=== PATIENT | female | born 1965 | race Caucasian/White ===

== ENCOUNTER 2016-09-02 08:40 | Day surgery (SDC) | payer OTHER ==
[~2016-09-02] VITALS: Ht 154.9 cm; Wt 72.6 kg
[~2016-09-02 08:40] MED LIST: ADULT LOW DOSE81 M1 PO; Atarax,Vistaril PO; CELEXA10 MG PO; CLINDAMYCIN HC150 MG PO; CLONAZEPAM1 M1 PO; CLONAZEPAM1 MG PO; CYMBALTA60 MG PO; DESYREL 150 MG150 MG PO; DESYREL300 MG PO; ELAVIL25 MG PO; FLEXERIL10 MG PO; GABAPENTIN100 MG PO; GABAPENTIN300 MG PO; IMITREX100 MG PO; IMITREX6 MG/0.51 SC; KETOROLAC TROMET5 ML BOTH EYES; LANTUS (UNITS)1 UNIT SC; MIRALAX255 GM PO; MS CONTIN,ORAMO15 M1 PO; NOVOLOG100 UNIT/3 SQ; OXYCODONE HCL10 MG PO; PERCOCET 5/31 TABLET PO; PREDNISOLONE SOD5 ML BOTH EYES; REQUIP1 MG PO; RESTORIL30 MG PO; SEROPHENE50 MG PO; SEROQUEL200 MG PO; SEROQUEL300 MG PO; SEROQUEL400 MG PO; SEROQUEL50 MG PO; TRAZODONE HCL150 MG PO; ULTRAM50 MG PO; ZANTAC150 M1 PO; ZITHROMAX250 MG PO; ZOCOR20 MG PO
== END 2016-09-02 10:32 | disposition home or self-care (01) ==
LOC: PAIN 08:40 → SDC 09:30 → PAIN 09:30
PROC: 015B3ZZ Destruction of Lumbar Nerve, Percutaneous Approach (ICD-10-PCS; principal; 2016-09-02)
DX: M47.816 Spondylosis without myelopathy or radiculopathy, lumbar region (principal); F41.9 Anxiety disorder, unspecified; F17.200 Nicotine dependence, unspecified, uncomplicated; E11.9 Type 2 diabetes mellitus without complications; M19.90 Unspecified osteoarthritis, unspecified site; E78.5 Hyperlipidemia, unspecified; G47.00 Insomnia, unspecified; D64.9 Anemia, unspecified; J45.909 Unspecified asthma, uncomplicated; F31.10 Bipolar disorder, current episode manic without psychotic features, unspecified; M79.1 Myalgia; G89.29 Other chronic pain; E66.9 Obesity, unspecified; Z68.41 Body mass index [BMI] 40.0-44.9, adult; Z88.1 Allergy status to other antibiotic agents; Z88.6 Allergy status to analgesic agent; Z88.8 Allergy status to other drugs, medicaments and biological substances
CPT/HCPCS: J1030; J2250; J3010; S0020

== ENCOUNTER 2016-09-09 06:52 | Day surgery (SDC) | payer OTHER ==
[~2016-09-09] VITALS: Ht 154.9 cm; Wt 72.6 kg
== END 2016-09-09 08:59 | disposition home or self-care (01) ==
LOC: PAIN 06:52 → SDC 07:30 → PAIN 07:30
DX: M47.816 Spondylosis without myelopathy or radiculopathy, lumbar region (principal); G89.29 Other chronic pain; M54.5 Low back pain; M51.36 Other intervertebral disc degeneration, lumbar region; K21.9 Gastro-esophageal reflux disease without esophagitis; Z86.73 Personal history of transient ischemic attack (TIA), and cerebral infarction without residual deficits; F17.210 Nicotine dependence, cigarettes, uncomplicated; Z88.2 Allergy status to sulfonamides; M79.7 Fibromyalgia; D64.9 Anemia, unspecified; F41.8 Other specified anxiety disorders; E11.9 Type 2 diabetes mellitus without complications; J45.909 Unspecified asthma, uncomplicated; E66.9 Obesity, unspecified; Z68.41 Body mass index [BMI] 40.0-44.9, adult; Z79.891 Long term (current) use of opiate analgesic
CPT/HCPCS: J1030; J2250; J3010; S0020

== ENCOUNTER 2016-10-11 17:51 | Observation (INO) | payer OTHER ==
[~2016-10-11] VITALS: Ht 152.4 cm; Wt 98.5 kg
[2016-10-11 18:33] LABS: EOSINOPHIL (%) 1.1 % (0-5); EOSINOPHIL COUNT 0.1 K/uL (0-0.3); HEMATOCRIT 41.1 % (36.0-46.0); IMMATURE GRANULOCYTE (%) 0.3 % (0.0-0.7); INSTRUMENT ABS NEUTROPHIL CT 3.5 K/uL; LYMPHOCYTE COUNT 3.2 K/uL (1.0-2.8); MCH 33.7 PG (29.0-34.0); MCHC 33.6 G/DL (30.0-36.0); MCV 100.5 FL (83-99); MONOCYTE COUNT 0.4 K/uL (0-0.8); NEUTROPHIL COUNT 3.5 K/uL (1.8-6.4); RBC DIS.WIDTH-CV 12.5 % (11.8-14.6); RBC DIS.WIDTH-SD 46.5 % (39-53); RED BLOOD COUNT 4.09 M/uL (3.80-5.20); WHITE BLOOD COUNT 7.3 K/uL (4.1-10.2)
[2016-10-11 18:41] LABS: PROTHROMBIN TIME 10.4 SEC (10.2-12.9)
[2016-10-11 18:47] LABS: AMYLASE 97 IU/L (1-118); CHLORIDE 111 mEq/L (99-109); POTASSIUM 4.5 mEq/L (3.7-5.4); SODIUM 144 mEq/L (136-147)
[2016-10-11 18:49] LABS: GLUCOSE 98 mg/dL (70-99)
[2016-10-11 18:51] LABS: ANION GAP 7 MEQ/L (2-14)
[2016-10-11 18:52] LABS: SERUM ETHYL ALCOHOL < 10 mg/dL
[2016-10-11 18:53] LABS: GFR ESTIMATE (CALCULATED) > 59 mL/min/
[2016-10-11 18:54] LABS: TROP-I INTERPRETATION NEGATIVE; TROPONIN-I < 0.01 ng/mL (0.0-0.30); UREA NITROGEN (BUN) 18 mg/dL (9-23)
[2016-10-11 18:56] LABS: LIPASE 85 U/L (1.0-51.0); QUANTITATIVE HCG < 4.0 MIU/ML
[2016-10-11 19:11] LABS: MEAN PLAT.VOLUME 11.4 uM^3 (9.5-12.4); PLAT.SUFFICIENCY ADEQUATE; PLATELET COUNT 112 K/uL (156-360)
[2016-10-11 20:15] LABS: ADD MIUA? YES; BILIRUBIN NEGATIVE; BLOOD NEGATIVE; COLOR STRAW ((YELLOW)); GLUCOSE (STRIP) NEGATIVE; KETONES NEGATIVE; LEUKOCYTES TRACE; NITRITE NEGATIVE; PROTEIN (STRIP) NEGATIVE; UROBILINOGEN 0.2 MG/DL (0.2-1.0)
[2016-10-11 20:34] LABS: BACTERIA RARE /HPF; EPITHELIAL CELLS NONE SEEN /HPF; MUCUS NONE SEEN /LPF; RED BLOOD CELLS 0-5 /HPF (0-5); UCUL ADDED? NO; WHITE BLOOD CELLS 0-5 /HPF (0-5)
[2016-10-11] MEDS ORDERED: CYCLOBENZAPRINE5 MG PO (22:10)
[2016-10-11 23:09] VITALS: BP 100/55
[2016-10-11 23:14] LABS: HDL CHOLESTEROL 53 MG/DL (Desirable>=50); LDL CHOLESTEROL 85 mg/dL (Desirable<100); NON-HDL CHOLESTEROL 100 mg/dL (Desirable<160); SAMPLE HEMOLYSIS CHECK 2; SAMPLE ICTERIC CHECK 0; SAMPLE LIPEMIA CHECK 0; TOTAL CHOLESTEROL 153 mg/dL (Desirable<200); TRIGLYCERIDES 76 MG/DL (Normal: <150)
[2016-10-12 03:30] VITALS: BP 117/56
[2016-10-12 06:18] LABS: HEMATOCRIT 39.9 % (36.0-46.0); MCH 33.3 PG (29.0-34.0); MCHC 32.8 G/DL (30.0-36.0); MCV 101.5 FL (83-99); MEAN PLAT.VOLUME 10.9 uM^3 (9.5-12.4); RBC DIS.WIDTH-CV 12.4 % (11.8-14.6); RBC DIS.WIDTH-SD 47.5 % (39-53); RED BLOOD COUNT 3.93 M/uL (3.80-5.20); WHITE BLOOD COUNT 5.6 K/uL (4.1-10.2)
[2016-10-12 06:20] LABS: PLATELET COUNT 172 K/uL (156-360)
[2016-10-12 06:26] LABS: ALKALINE PHOSPHATASE 104 IU/L (3-129); ANION GAP 4 MEQ/L (2-14); CHLORIDE 112 MEQ/L (99-109); GFR ESTIMATE (CALCULATED) > 59 mL/min/; GLUCOSE 111 mg/dL (70-99); POTASSIUM 4.7 MEQ/L (3.7-5.4); SAMPLE HEMOLYSIS CHECK 0; SAMPLE ICTERIC CHECK 0; SAMPLE LIPEMIA CHECK 0; SODIUM 143 MEQ/L (136-147); TOTAL BILIRUBIN 0.2 MG/DL (0.0-1.0); UREA NITROGEN (BUN) 18 mg/dL (9-23)
[2016-10-12 07:34] VITALS: BP 131/68
[2016-10-12 10:13] LABS: Estimated Average Glucose 111 mg/dL (70-123); HEMOGLOBIN A1c (GLYCOHEMOGLOB) 5.5 % HGB (Below 5.7)
[2016-10-12] MEDS ORDERED: ATORVASTATIN CA40 MG PO (12:14)
[2016-10-12] MEDS ORDERED: ASPIR-LOW81 MG PO (13:00)
[2016-10-12 15:15] LABS: AMPHETAMINES QUANT VALUE 0 NG/ML; BARBITUATES QUANT VALUE 0 NG/ML; BENZODIAZEPINES QUANT VALUE 0 NG/ML; BENZODIAZEPINES, URINE SCREEN Negative (200 ng/mL); OPIATES QUANTITATIVE VALUE 0 NG/ML; PHENCYCLIDINE QUANT VALUE 0 NG/ML
== END 2016-10-12 13:13 | disposition home or self-care (01) ==
LOC: EME 17:51 → EDOF 21:42 → ENRESERV 21:50 → 5WEST 22:55
PROVIDERS: Emergency Medicine; Internal Medicine
DX: M62.81 Muscle weakness (generalized) (principal); R20.0 Anesthesia of skin; R20.2 Paresthesia of skin; H53.8 Other visual disturbances; R42 Dizziness and giddiness; G43.909 Migraine, unspecified, not intractable, without status migrainosus; F31.9 Bipolar disorder, unspecified; E11.9 Type 2 diabetes mellitus without complications; F17.210 Nicotine dependence, cigarettes, uncomplicated; Z88.8 Allergy status to other drugs, medicaments and biological substances
CPT/HCPCS: 70450; 70496; 70498; 70551; 76705; 80048; 80053; 80061; 80306 90; 81003; 82150; 83036; 83690; 84484; 84702; 85025; 85027; 85610; 85730; 86900; 86901; 93005; 99281; 99285; G0378; G0480; J2765; J7030

== ENCOUNTER 2017-01-28 14:56 | Observation (INO) | payer OTHER ==
[~2017-01-28] VITALS: Ht 154.9 cm; Wt 97.9 kg
[~2017-01-28 14:56] MED LIST changes: +ASPIR-LOW81 MG PO; +ATORVASTATIN CA40 MG PO; +CYCLOBENZAPRINE5 MG PO
[2017-01-28 16:00] LABS: HEMATOCRIT 44.8 % (36.0-46.0); MCH 32.5 PG (29.0-34.0); MCHC 33.9 G/DL (30.0-36.0); MCV 95.9 FL (83-99); MEAN PLAT.VOLUME 10.7 uM^3 (9.5-12.4); PLATELET COUNT 205 K/uL (156-360); RBC DIS.WIDTH-CV 11.8 % (11.8-14.6); RBC DIS.WIDTH-SD 41.4 % (39-53); RED BLOOD COUNT 4.67 M/uL (3.80-5.20); WHITE BLOOD COUNT 8.6 K/uL (4.1-10.2)
[2017-01-28 16:08] LABS: CHLORIDE 104 mEq/L (99-109); POTASSIUM 4.2 mEq/L (3.7-5.4); SODIUM 136 mEq/L (136-147)
[2017-01-28 16:10] LABS: GLUCOSE 108 mg/dL (70-99)
[2017-01-28 16:11] LABS: ANION GAP 11 MEQ/L (2-14)
[2017-01-28 16:14] LABS: GFR ESTIMATE (CALCULATED) > 59 mL/min/
[2017-01-28 16:15] LABS: UREA NITROGEN (BUN) 20 mg/dL (9-23)
[2017-01-28 16:21] LABS: TROP-I INTERPRETATION NEGATIVE; TROPONIN-I < 0.01 ng/mL (0.0-0.30)
[2017-01-28 17:38] LABS: ADD MIUA? YES; BILIRUBIN NEGATIVE; BLOOD NEGATIVE; COLOR YELLOW ((YELLOW)); GLUCOSE (STRIP) NEGATIVE; KETONES 20; LEUKOCYTES LARGE; NITRITE NEGATIVE; PROTEIN (STRIP) NEGATIVE; SPECIFIC GRAVITY 1.014 (1.000-1.030); UROBILINOGEN 0.2 MG/DL (0.2-1.0)
[2017-01-28 17:58] LABS: BACTERIA NONE SEEN /HPF; CALCIUM OXALATE CRYSTALS 2+ /HPF; EPITHELIAL CELLS 2+ /HPF; HYALINE CASTS 0-5 /LPF; MUCUS TRACE /LPF; UCUL ADDED? YES; WHITE BLOOD CELLS 20-30 /HPF (0-5)
[2017-01-28 18:25] LABS: TROP-I INTERPRETATION NEGATIVE; TROPONIN-I < 0.01 ng/mL (0.0-0.30)
[2017-01-28] MEDS ORDERED: SEROQUEL300 MG PO (18:40)
[2017-01-28] MEDS ORDERED: SEROQUEL50 MG PO (18:40)
[2017-01-28] MEDS ORDERED: CYMBALTA60 MG PO (18:41)
[2017-01-28] MEDS ORDERED: KLONOPIN1 MG PO (18:42)
[2017-01-28] MEDS ORDERED: ALLEGRA60 MG PO (18:43)
[2017-01-28] MEDS ORDERED: ALEVE220 MG PO (18:43)
[2017-01-28 19:48] VITALS: BP 143/74
[2017-01-29] VITALS: BP 98/64
[2017-01-29 00:07] LABS: TROP-I INTERPRETATION NEGATIVE; TROPONIN-I < 0.01 ng/mL (0.0-0.30)
[2017-01-29 04:00] VITALS: BP 124/59
[2017-01-29 05:51] LABS: HEMATOCRIT 38.8 % (36.0-46.0); MCH 32.9 PG (29.0-34.0); MCV 99.7 FL (83-99); MEAN PLAT.VOLUME 11.1 uM^3 (9.5-12.4); PLATELET COUNT 158 K/uL (156-360); RBC DIS.WIDTH-SD 44.1 % (39-53); RED BLOOD COUNT 3.89 M/uL (3.80-5.20); WHITE BLOOD COUNT 6.5 K/uL (4.1-10.2)
[2017-01-29 06:26] LABS: ANION GAP 6 MEQ/L (2-14); CHLORIDE 109 MEQ/L (99-109); GFR ESTIMATE (CALCULATED) > 59 mL/min/; GLUCOSE 92 mg/dL (70-99); POTASSIUM 3.9 MEQ/L (3.7-5.4); SAMPLE HEMOLYSIS CHECK 0; SAMPLE ICTERIC CHECK 0; SAMPLE LIPEMIA CHECK 0; SODIUM 140 MEQ/L (136-147); UREA NITROGEN (BUN) 23 mg/dL (9-23)
[2017-01-29 07:31] VITALS: BP 151/65
[2017-01-29 10:36] VITALS: BP 126/52
[2017-01-29] MEDS ORDERED: AZITHROMYCIN500 M1 PO (12:40)
[2017-01-29] MEDS ORDERED: SPIRIVA RESPIMAT4 GM IH (12:40)
[2017-01-29] MEDS ORDERED: DILTIAZEM 24HR180 MG PO (12:41)
[2017-01-29] MEDS ORDERED: NICOTINE PATCH1 EAC1 TD (12:41)
[2017-01-29] MEDS ORDERED: MUCINEX600 MG PO (12:42)
[2017-01-29] MEDS ORDERED: PREDNISONE20 MG PO (12:50)
== END 2017-01-29 15:40 | disposition home or self-care (01) ==
LOC: EME 14:56 → 5WEST 18:15 → EDOF 18:15 → ENRESERV 18:18 → 5WEST 19:34
PROVIDERS: Hospitalist; Nurse Practitioner Family
DX: R07.9 Chest pain, unspecified (principal); F17.200 Nicotine dependence, unspecified, uncomplicated; F31.9 Bipolar disorder, unspecified; G43.909 Migraine, unspecified, not intractable, without status migrainosus; R00.2 Palpitations; R61 Generalized hyperhidrosis; R06.09 Other forms of dyspnea; E78.5 Hyperlipidemia, unspecified; I10 Essential (primary) hypertension; R42 Dizziness and giddiness; E83.52 Hypercalcemia; N39.0 Urinary tract infection, site not specified; Z90.49 Acquired absence of other specified parts of digestive tract; Z79.82 Long term (current) use of aspirin; E66.9 Obesity, unspecified; Z68.41 Body mass index [BMI] 40.0-44.9, adult; Z88.8 Allergy status to other drugs, medicaments and biological substances; Z88.2 Allergy status to sulfonamides; Z88.1 Allergy status to other antibiotic agents
CPT/HCPCS: 71020; 80048; 81003; 84484; 85027; 87086; 93005; 93306; 94640; 99281; 99285; G0378; J0696; J2405; J7030; J7050; J7512

== ENCOUNTER 2017-06-09 15:15 | Inpatient (IN) | payer OTHER ==
[~2017-06-09] VITALS: Ht 154.9 cm; Wt 79.9 kg
[~2017-06-09 15:15] MED LIST changes: +ALEVE220 MG PO; +ALLEGRA60 MG PO; +AZITHROMYCIN500 M1 PO; +DILTIAZEM 24HR180 MG PO; +KLONOPIN1 MG PO; +MUCINEX600 MG PO; +NICOTINE PATCH1 EAC1 TD; +PREDNISONE20 MG PO; +SPIRIVA RESPIMAT4 GM IH
[2017-06-09 16:27] LABS: BASOPHIL (%) 0.4 % (0-1); EOSINOPHIL (%) 0.4 % (0-5); HEMATOCRIT 43.6 % (36.0-46.0); HEMOGLOBIN 15.1 G/DL (11.9-15.5); IMMATURE GRANULOCYTE (%) 0.2 % (0.0-0.7); LYMPHOCYTE (%) 24.2 % (15-42); LYMPHOCYTE COUNT 1.2 K/uL (1.0-2.8); MCHC 34.6 G/DL (30.0-36.0); MCV 95.4 FL (83-99); MONOCYTE (%) 11.5 % (3-12); MONOCYTE COUNT 0.6 K/uL (0-0.8); NEUTROPHIL (%) 63.3 % (45-76); NEUTROPHIL COUNT 3.2 K/uL (1.8-6.4); PLATELET COUNT 181 K/uL (156-360); RBC DIS.WIDTH-CV 12.6 % (11.8-14.6); RBC DIS.WIDTH-SD 44.9 % (39-53); RED BLOOD COUNT 4.57 M/uL (3.80-5.20); WHITE BLOOD COUNT 5.1 K/uL (4.1-10.2)
[2017-06-09 16:36] LABS: ALBUMIN 3.9 g/dL (3.2-4.8); CHLORIDE 104 mEq/L (99-109); POTASSIUM 3.7 mEq/L (3.7-5.4); SODIUM 137 mEq/L (136-147)
[2017-06-09 16:38] LABS: GLUCOSE 181 mg/dL (70-99); TOTAL PROTEIN 6.6 g/dL (6.4-8.3)
[2017-06-09 16:40] LABS: TOTAL BILIRUBIN 0.4 mg/dL (0.0-1.0)
[2017-06-09 16:41] LABS: SERUM ETHYL ALCOHOL < 10 mg/dL
[2017-06-09 16:42] LABS: ALKALINE PHOSPHATASE 125 IU/L (3-129); CREATININE 0.8 mg/dL (0.6-1.3); GFR ESTIMATE (CALCULATED) > 59 mL/min/
[2017-06-09 16:43] LABS: UREA NITROGEN (BUN) 12 mg/dL (9-23)
[2017-06-09 16:44] LABS: AST (GOT) 13 IU/L (2-34)
[2017-06-09 16:45] LABS: ALT (GPT) 13 IU/L (3-49); CREATINE KINASE 30 IU/L (1-294); TOTAL CK 30 IU/L (1-294)
[2017-06-09 16:51] LABS: CK-MB 0.4 ng/mL (0.0-4.9); CKMB RELATIVE INDEX 1.3 (0.0-3.9)
[2017-06-09 18:24] LABS: TROP-I INTERPRETATION NEGATIVE; TROPONIN-I < 0.01 ng/mL (0.0-0.30)
[2017-06-09 23:05] LABS: D-DIMER ELISA < 150.00 ng/mLDDU (<230)
[2017-06-09 23:58] VITALS: BP 140/76
[2017-06-10] VITALS (11 sets, daily range): BP systolic 99–141; BP diastolic 55–81
[2017-06-10 06:10] LABS: HEMATOCRIT 40.8 % (36.0-46.0); HEMOGLOBIN 13.8 G/DL (11.9-15.5); MCH 33.4 PG (29.0-34.0); MCHC 33.8 G/DL (30.0-36.0); MCV 98.8 FL (83-99); PLATELET COUNT 184 K/uL (156-360); RBC DIS.WIDTH-CV 13.1 % (11.8-14.6); RBC DIS.WIDTH-SD 47.3 % (39-53); RED BLOOD COUNT 4.13 M/uL (3.80-5.20); WHITE BLOOD COUNT 6.6 K/uL (4.1-10.2)
[2017-06-10 06:45] LABS: ALBUMIN 3.5 G/DL (3.2-4.8); ALKALINE PHOSPHATASE 97 IU/L (3-129); ALT (GPT) 10 IU/L (3-49); AST (GOT) 12 IU/L (2-34); CHLORIDE 109 MEQ/L (99-109); CREATININE 0.6 MG/DL (0.6-1.3); GFR ESTIMATE (CALCULATED) > 59 mL/min/; GLUCOSE 123 mg/dL (70-99); POTASSIUM 3.9 MEQ/L (3.7-5.4); SODIUM 140 MEQ/L (136-147); TOTAL BILIRUBIN 0.3 MG/DL (0.0-1.0); TOTAL PROTEIN 6.1 G/DL (6.4-8.3); UREA NITROGEN (BUN) 14 mg/dL (9-23)
[2017-06-10 06:45] LABS: TROP-I INTERPRETATION NEGATIVE; TROPONIN-I < 0.01 ng/mL (0.0-0.30)
[2017-06-10 08:04] LABS: INTACT PARATHYROID HORMONE 103 pg/mL (10-69)
[2017-06-10 08:22] LABS: BASE EXCESS 0.3 mEq/L (-3 to +3); BICARBONATE 25.4 mEq/L (22-26); COMMENTS - BLOOD GASES A+C+; DEVICE NRBM; FI02 100 %; METHEMOGLOBIN 1.5 % (0-1.5); O2 FLOW 15 L/MIN; PCO2 42 mm Hg (35-45); PO2 93 mm Hg (80-100); SITE RR; TOTAL RESP RATE 25 resp/min; pH 7.39 (7.35-7.45)
[2017-06-10 12:12] LABS: TROP-I INTERPRETATION NEGATIVE; TROPONIN-I < 0.01 ng/mL (0.0-0.30)
[2017-06-11 07:15] VITALS: BP 112/58
[2017-06-11 08:57] LABS: APPEARANCE SL.HAZY ((CLEAR)); BILIRUBIN NEGATIVE; BLOOD SMALL; COLOR YELLOW ((YELLOW)); GLUCOSE (STRIP) NEGATIVE; KETONES NEGATIVE; LEUKOCYTES LARGE; NITRITE NEGATIVE; PROTEIN (STRIP) NEGATIVE; SPECIFIC GRAVITY 1.013 (1.000-1.030); UROBILINOGEN 0.2 MG/DL (0.2-1.0)
[2017-06-11 09:04] LABS: BACTERIA RARE /HPF; EPITHELIAL CELLS 1+ /HPF; MUCUS 1+ /LPF; RED BLOOD CELLS 30-40 /HPF (0-5); UCUL ADDED? YES; WHITE BLOOD CELLS 15-20 /HPF (0-5)
[2017-06-11 09:52] LABS: BENZODIAZEPINES, URINE SCREEN POSITIVE (200 ng/mL)
[2017-06-11 11:03] VITALS: BP 111/58
[2017-06-11 11:29] LABS: HEMOGLOBIN 12.4 G/DL (11.9-15.5); MCHC 33.5 G/DL (30.0-36.0); MCV 98.4 FL (83-99); PLATELET COUNT 169 K/uL (156-360); RBC DIS.WIDTH-SD 46.8 % (39-53); RED BLOOD COUNT 3.76 M/uL (3.80-5.20); WHITE BLOOD COUNT 11.4 K/uL (4.1-10.2)
[2017-06-11 12:27] LABS: CHLORIDE 105 MEQ/L (99-109); MAGNESIUM 2.1 mg/dl (1.3-2.7); POTASSIUM 4.2 MEQ/L (3.7-5.4); SODIUM 138 MEQ/L (136-147)
[2017-06-11 12:54] VITALS: BP 120/69
[2017-06-11 13:07] LABS: CREATININE 0.6 MG/DL (0.6-1.3); GFR ESTIMATE (CALCULATED) > 59 mL/min/; GLUCOSE 134 mg/dL (70-99)
[2017-06-11 13:11] LABS: UREA NITROGEN (BUN) 24 mg/dL (9-23)
[2017-06-11 13:39] LABS: QUANTITATIVE HCG < 4.0 MIU/ML
[2017-06-11 16:06] VITALS: BP 119/61
[2017-06-11 18:45] VITALS: BP 112/59
[2017-06-11 22:39] VITALS: BP 115/59
[2017-06-12 03:51] VITALS: BP 108/53
[2017-06-12 06:32] LABS: BASOPHIL (%) 0 % (0-1); EOSINOPHIL (%) 0 % (0-5); HEMATOCRIT 37.5 % (36.0-46.0); HEMOGLOBIN 12.1 G/DL (11.9-15.5); LYMPHOCYTE (%) 10.4 % (15-42); LYMPHOCYTE COUNT 0.9 K/uL (1.0-2.8); MCH 31.6 PG (29.0-34.0); MCHC 32.3 G/DL (30.0-36.0); MCV 97.9 FL (83-99); MONOCYTE (%) 4.6 % (3-12); MONOCYTE COUNT 0.4 K/uL (0-0.8); NEUTROPHIL COUNT 6.9 K/uL (1.8-6.4); PLATELET COUNT 161 K/uL (156-360); RBC DIS.WIDTH-CV 12.8 % (11.8-14.6); RBC DIS.WIDTH-SD 45.8 % (39-53); RED BLOOD COUNT 3.83 M/uL (3.80-5.20); WHITE BLOOD COUNT 8.2 K/uL (4.1-10.2)
[2017-06-12 06:56] LABS: ALBUMIN 3.2 G/DL (3.2-4.8); ALKALINE PHOSPHATASE 84 IU/L (3-129); ALT (GPT) 7 IU/L (3-49); AST (GOT) 7 IU/L (2-34); CHLORIDE 105 MEQ/L (99-109); CREATININE 0.6 MG/DL (0.6-1.3); GFR ESTIMATE (CALCULATED) > 59 mL/min/; GLUCOSE 190 mg/dL (70-99); POTASSIUM 4.3 MEQ/L (3.7-5.4); SODIUM 134 MEQ/L (136-147); TOTAL PROTEIN 5.3 G/DL (6.4-8.3); UREA NITROGEN (BUN) 14 mg/dL (9-23)
[2017-06-12 06:57] LABS: TOTAL BILIRUBIN 0.2 MG/DL (0.0-1.0)
[2017-06-12 07:21] VITALS: BP 133/66
[2017-06-12 10:58] VITALS: BP 133/63
[2017-06-12 16:00] VITALS: BP 129/67
[2017-06-12 19:51] VITALS: BP 171/72
[2017-06-12 23:56] VITALS: BP 158/77
[2017-06-13 03:35] VITALS: BP 116/60
[2017-06-13 07:14] VITALS: BP 125/58
[2017-06-13] MEDS ORDERED: SEROQUEL50 MG PO (12:33)
[2017-06-13] MEDS ORDERED: SPIRIVA RESPIMAT4 GM IH (12:33)
[2017-06-13] MEDS ORDERED: CYMBALTA60 MG PO (12:33)
[2017-06-13] MEDS ORDERED: SEROQUEL300 MG PO (12:33)
[2017-06-13] MEDS ORDERED: AUGMENTIN875 MG PO (12:33)
[2017-06-13] MEDS ORDERED: DESYREL 150 MG150 MG PO (12:33)
[2017-06-13] MEDS ORDERED: KLONOPIN1 MG PO (12:33)
[2017-06-13] MEDS ORDERED: ATORVASTATIN CA40 MG PO (12:33)
[2017-06-13] MEDS ORDERED: PROAIR HFA8.5 GM IH (12:33)
[2017-06-13] MEDS ORDERED: PREDNISONE10 MG PO (12:33)
[2017-06-13 13:30] VITALS: BP 116/55
[2017-06-13] MEDS ORDERED: INCRUSE ELLI62.5 MCG IH (13:34)
== END 2017-06-13 15:30 | disposition home or self-care (01) | DRG 987 ==
LOC: EME 15:15 → 4WEST 22:24 → 5EAST 22:24 → EDOF 22:24 → ENRESERV 22:24 → 5EAST 23:45 → ENRESERV 06-10 09:55 → 4WEST 06-10 10:01 → ENRESERV 06-10 10:01 → 4WEST 06-10 17:31 → ENRESERV 06-10 17:34 → 5EAST 06-10 19:23 → ENPENDDIS 06-13 → 5EAST 06-13 15:30
PROVIDERS: Emergency Medicine; Hospitalist; Physician Assistant
DX: G40.409 Other generalized epilepsy and epileptic syndromes, not intractable, without status epilepticus (principal); J18.9 Pneumonia, unspecified organism; J96.01 Acute respiratory failure with hypoxia; J44.1 Chronic obstructive pulmonary disease with (acute) exacerbation; J20.9 Acute bronchitis, unspecified; J44.0 Chronic obstructive pulmonary disease with (acute) lower respiratory infection; T17.890A Other foreign object in other parts of respiratory tract causing asphyxiation, initial encounter; T17.590A Other foreign object in bronchus causing asphyxiation, initial encounter; E83.52 Hypercalcemia; F31.9 Bipolar disorder, unspecified; G89.4 Chronic pain syndrome; F13.239 Sedative, hypnotic or anxiolytic dependence with withdrawal, unspecified; G47.33 Obstructive sleep apnea (adult) (pediatric); F41.8 Other specified anxiety disorders; K21.9 Gastro-esophageal reflux disease without esophagitis; G43.909 Migraine, unspecified, not intractable, without status migrainosus; J81.1 Chronic pulmonary edema; E11.40 Type 2 diabetes mellitus with diabetic neuropathy, unspecified; J98.11 Atelectasis; W19.XXXA Unspecified fall, initial encounter; E78.5 Hyperlipidemia, unspecified; M79.7 Fibromyalgia; F17.210 Nicotine dependence, cigarettes, uncomplicated; Z68.33 Body mass index [BMI] 33.0-33.9, adult; I69.354 Hemiplegia and hemiparesis following cerebral infarction affecting left non-dominant side; Z82.3 Family history of stroke; Z90.49 Acquired absence of other specified parts of digestive tract; Z87.442 Personal history of urinary calculi; Z90.710 Acquired absence of both cervix and uterus; Z82.0 Family history of epilepsy and other diseases of the nervous system; Z80.0 Family history of malignant neoplasm of digestive organs
CPT/HCPCS: 36600; 70450; 71045; 71046; 80048; 80053; 80306 90; 81003; 82550; 82553; 82803; 82948; 83735; 83880; 83970; 84443; 84484; 84702; 85025; 85027; 85379; 87070; 87077; 87086; 87181; 87205; 87641; 90686; 93005; 94010; 94640; 94640 76; 94667; 94668; 94799; 95819; 99202; 99281; 99285; G0480; J0295; J1644; J2250; J2920; J7030; J7050; J7512